=== PATIENT | female | born 1945 | race Caucasian/White ===

== ENCOUNTER → 2017-11-23 | Outpatient (CLI) | payer MEDICARE ==
[2017-11-23 19:21] LABS: Basophils # (A) 0.1 k/uL (0-0.2); Basophils % (A) 1 %; Eosinophils # (A) 0.2 k/uL (0-0.7); Eosinophils % (A) 2 %; HCT 47.5 % (34.0-46.0); HGB 14.8 gm/dL (11.4-16.0); Hypochromasia Slight; Lymphocytes # (A) 2.4 k/uL (1.0-4.8); Lymphocytes % (A) 29 %; MCH 31.5 pg (25.0-35.0); MCHC 31.2 g/dL (31.0-37.0); MCV 100.7 fL (80.0-100.0); Mean Platelet Volume 8.2; Monocytes # (A) 0.4 k/uL (0-1.0); Monocytes % (A) 5 %; Neutrophils # (A) 5.3 k/uL (1.3-7.7); Neutrophils % (A) 63 %; Platelet Count 217 k/uL (150-450); RBC 4.72 m/uL (3.80-5.40); RDW 12.7 % (11.5-15.5); WBC 8.5 k/uL (3.8-10.6)
[2017-11-23 19:22] LABS: ALT 23 U/L (9-52); AST 25 U/L (14-36); Albumin 4.5 g/dL (3.5-5.0); Alkaline Phosphatase 118 U/L (38-126); Anion Gap 10 mmol/L; Blood Urea Nitrogen 24 mg/dL (7-17); Calcium 9.8 mg/dL (8.4-10.2); Carbon Dioxide 27 mmol/L (22-30); Chloride 107 mmol/L (98-107); Cholesterol 165 mg/dL (<200); Glucose 87 mg/dL (74-99); HDL Cholesterol 56 mg/dL (40-60); LDL Cholesterol,Calculated 79 mg/dL (0-99); Potassium 5.1 mmol/L (3.5-5.1); Sodium 144 mmol/L (137-145); Total Bilirubin 0.3 mg/dL (0.2-1.3); Total Protein 7.5 g/dL (6.3-8.2); Triglycerides 148 mg/dL (<150)
[2017-11-24 00:26] LABS: Iron Saturation 38.01 (12.00-45.00)
== END | disposition home or self-care (01) ==
LOC: MMGSC 11:31
PROVIDERS: ATTEND Family Medicine
DX: Z00.00 Encounter for general adult medical examination without abnormal findings (principal); Z86.2 Personal history of diseases of the blood and blood-forming organs and certain disorders involving the immune mechanism
CPT/HCPCS: 36415; 80053; 80061; 82728; 83540; 83550; 84439; 84443; 85025

== ENCOUNTER → 2018-02-01 | Outpatient (CLI) | payer MEDICARE ==
[2018-02-01 18:41] LABS: Basophils % (A) 0 %; Eosinophils # (A) 0.2 k/uL (0-0.7); Eosinophils % (A) 3 %; HCT 45.6 % (34.0-46.0); Lymphocytes # (A) 2.3 k/uL (1.0-4.8); Lymphocytes % (A) 32 %; MCH 31.5 pg (25.0-35.0); MCHC 32.9 g/dL (31.0-37.0); MCV 95.7 fL (80.0-100.0); Mean Platelet Volume 8.3; Monocytes # (A) 0.3 k/uL (0-1.0); Monocytes % (A) 4 %; Neutrophils # (A) 4.3 k/uL (1.3-7.7); Neutrophils % (A) 59 %; Platelet Count 202 k/uL (150-450); RBC 4.77 m/uL (3.80-5.40); RDW 12.5 % (11.5-15.5); WBC 7.3 k/uL (3.8-10.6)
[2018-02-02 03:13] LABS: Iron Saturation 42.59 (12.00-45.00)
== END ==
LOC: MMGSC 10:36
PROVIDERS: ATTEND Family Medicine
DX: R53.83 Other fatigue (principal)
CPT/HCPCS: 36415; 82728; 83540; 83550; 85025

== ENCOUNTER 2018-12-09 09:40 | Emergency (ER) | payer MEDICARE ==
[2018-12-09] MEDS ORDERED: KETOROLAC 30 MG/ML 1 ML VIAL IM STA (10:06)
--- NOTE | 2018-12-09 10:11 | ED ---
General Adult HPI - General Chief complaint: Extremity Problem,Nontraumatic Stated complaint: Leg/knee Pain Time Seen by Provider: 12/09/18 09:54 Source: patient, RN notes reviewed Mode of arrival: ambulatory Limitations: no limitations - History of Present Illness Initial comments: 73-year-old female with a past medical history of hypertension, left knee surgery presents to the emergency department for a chief complaint of right knee pain x 6 days. Patient states this type of pain comes and goes over the past several years. However, pain usually gets better. She states this time of her pain does not seem to be resolving. She states most of the pain originates in the posterior aspect of the knee and radiates down to her calf. She states she does have pain in the anterior aspect of the knee if she moves the knee. Patient states she is now unable to bear weight on the right leg because of this knee pain. She denies any fevers or chills. She denies noticing any erythema or warmth in the right knee. Patient did have a left knee surgery done about 20 years ago but is unsure of why this was done. She did see her primary care provider for another reason 2 days ago and mentioned any pain but thought it would get better at that time so did not have a fully evaluated.Patient has no other complaints at this time including shortness of breath, chest pain, abdominal pain, nausea or vomiting, headache, or visual changes. - Related Data Home Medications Medication Instructions Recorded Confirmed Aspirin EC [Ecotrin Low Dose] 81 mg PO DAILY 12/09/18 12/09/18 Carisoprodol [Soma] 350 mg PO BID 12/09/18 12/09/18 HYDROcodone/APAP 5-325MG [Kimball 1 tab PO BID PRN 12/09/18 12/09/18 5-325] Naproxen Sodium [Aleve] 220 mg PO DAILY PRN 12/09/18 12/09/18 Nitroglycerin Sl Tabs [Nitrostat] 0.4 mg SUBLINGUAL Q5M PRN 12/09/18 12/09/18 Pramipexole [Mirapex] 0.125 mg PO HS 12/09/18 12/09/18 Simvastatin 40 mg PO HS 12/09/18 12/09/18 traZODone HCL [Desyrel] 100 mg PO HS PRN 12/09/18 12/09/18 Allergies Allergy/AdvReac Type Severity Reaction Status Date / Time celecoxib [From Celebrex] Allergy Swelling Verified 12/09/18 10:13 Review of Systems ROS Statement: Those systems with pertinent positive or pertinent negative responses have been documented in the HPI. ROS Other: All systems not noted in ROS Statement are negative. Past Medical History Past Medical History: Chest Pain / Angina, Hypertension History of Any Multi-Drug Resistant Organisms: None Reported Past Surgical History: Back Surgery, Cholecystectomy, Hysterectomy Additional Past Surgical History / Comment(s): Knee, carpal tunnel Past Psychological History: No Psychological Hx Reported Smoking Status: Current every day smoker Past Alcohol Use History: None Reported Past Drug Use History: None Reported General Exam Limitations: no limitations General appearance: alert, in no apparent distress Head exam: Present: atraumatic, normocephalic, normal inspection Eye exam: Present: normal appearance, PERRL, EOMI. Absent: scleral icterus, conjunctival injection, periorbital swelling ENT exam: Present: normal exam, mucous membranes moist Neck exam: Present: normal inspection, full ROM. Absent: tenderness, meningismus, lymphadenopathy Respiratory exam: Present: normal lung sounds bilaterally. Absent: respiratory distress, wheezes, rales, rhonchi, stridor Cardiovascular Exam: Present: regular rate, normal rhythm, normal heart sounds. Absent: systolic murmur, diastolic murmur, rubs, gallop, clicks Extremities exam: Present: tenderness (Mild tenderness noted to the anterior and posterior aspect of the right knee.), normal capillary refill (Capillary refill less than 2 seconds and DP pulse 2+ in the right lower extremity.), joint swelling (Patient does have edema noted of the right knee. There is no erythema or increased warmth noted over the right knee. No evidence of infection.). Absent: full ROM (Patient has about 90 flexion of the right knee. ), calf tenderness (No significant calf tenderness however there is mild edema noted of the right calf.) Course Vital Signs 12/09/18 12/09/18 09:42 11:18 Temperature 97.3 F L 98.9 F Pulse Rate 68 59 L Respiratory 20 18 Rate Blood Pressure 159/83 146/84 O2 Sat by Pulse 98 97 Oximetry Medical Decision Making - Medical Decision Making 73-year-old female with a past history of hypertension presents to the emergency department for right knee pain. Patient able to flex the knee to 90 . She does have edema noted to the right knee but no erythema or increased warmth. No fevers here or at home. Patient also has calf pain. Ultrasound negative for DVT. X-ray does show a small amount of fluid in the suprapatellar bursa without fracture or dislocation. There is also hypertrophic arthropathy. I do not suspect septic bursitis at this time this patient can bend and knee to 90, has no erythema or increased warmth noted to the knee. The knee was wrapped tightly with an Curry wrap, neurovascular status intact. Patient does have difficulty bearing weight on the right knee but states she wants to go home and does not want to stay here. She states she has a walker at home and her granddaughter is staying with her and will help her. She will follow up with orthopedics today. She will return here if she has any worsening symptoms. Patient does have Vicodin at home for her back pain that she will take. She states pain has improved on discharge. Disposition Clinical Impression: Bursitis, Knee pain, right Disposition: HOME SELF-CARE Condition: Good Instructions (If sedation given, give patient instructions): Knee Bursitis (ED) , Knee Pain (ED) Additional Instructions: Please take Motrin and your Vicodin at home for pain. Keep knee wrapped over the next several days. However do not keep knee wrapped when he were sleeping at night. Use your walker at home for support. Follow up with orthopedics today. Return here to the emergency department if you have any worsening symptoms. Is patient prescribed a controlled substance at d/c from ED?: No Referrals: Ayah Cooley MD [Primary Care Provider] - 1-2 days Time of Disposition: 12:23
--- NOTE | 2018-12-09 11:02 | XR ---
EXAMINATION TYPE: XR knee complete RT DATE OF EXAM: 12/09/2018 COMPARISON: NONE HISTORY: Pain TECHNIQUE: Four views are submitted. FINDINGS: Mild hypertrophic spurring. Mild narrowing patellofemoral joint and there is a small amount of fluid in the suprapatellar bursa. Osseous structures are intact. No acute fracture seen. IMPRESSION: 1. No acute fracture or dislocation. 2. Small amount of fluid in the suprapatellar bursa. 3. Hypertrophic arthropathy
[2018-12-09 11:18] VITALS: BP 146/84; PULSE 59; RESP 18
--- NOTE | 2018-12-09 11:27 | US ---
EXAMINATION TYPE: US venous doppler duplex LE RT DATE OF EXAM: 12/09/2018 11:20 AM COMPARISON: NONE CLINICAL HISTORY: Pain. RT leg pain SIDE PERFORMED: Right TECHNIQUE: The lower extremity deep venous system is examined utilizing real time linear array sonog navid with graded compression, doppler sonography and color-flow sonography. VESSELS IMAGED: External Iliac Vein (EIV) Common Femoral Vein Deep Femoral Vein Greater Saphenous Vein * Femoral Vein Popliteal Vein Small Saphenous Vein * Proximal Calf Veins (* superficial vessels) Right Leg: Negative for DVT IMPRESSION: 1. No diagnostic evidence of DVT as visualized.
[2018-12-09 12:12] VITALS: TEMP 98.9
[2018-12-09] MEDS ORDERED: MORPHINE SULFATE 4 MG/ML SYRINGE IM STA (12:24)
== END 2018-12-09 12:50 | disposition home or self-care (01) ==
LOC: EC 09:40
DX: M71.561 Other bursitis, not elsewhere classified, right knee (principal); M12.861 Other specific arthropathies, not elsewhere classified, right knee; R60.0 Localized edema; M79.661 Pain in right lower leg; I10 Essential (primary) hypertension; F17.200 Nicotine dependence, unspecified, uncomplicated; Z88.6 Allergy status to analgesic agent; Z79.82 Long term (current) use of aspirin; Z79.899 Other long term (current) drug therapy; Z98.890 Other specified postprocedural states
CPT/HCPCS: 73562; 93971; 99284; 96372 ×2; J2270; J1885

== ENCOUNTER → 2020-07-12 | Outpatient (CLI) | payer MEDICARE ==
[2020-07-12 23:04] LABS: % Iron Saturation 38.6 (12.00-45.00)
[2020-07-12 23:19] LABS: Ferritin 57.5 ng/mL (10.0-291.0)
== END | disposition home or self-care (01) ==
LOC: LABWHC1 14:45
PROVIDERS: ATTEND Internal Medicine Critical Care Medicine
DX: G25.81 Restless legs syndrome (principal)
CPT/HCPCS: 36415; 82728; 83540; 83550

== ENCOUNTER → 2021-01-09 | Outpatient (CLI) | payer MEDICARE | END | disposition home or self-care (01) | LOC: LABWHC1 16:41 | PROVIDERS: ATTEND Family Medicine | DX: U07.1 COVID-19 (principal); R50.9 Fever, unspecified; R43.8 Other disturbances of smell and taste | CPT/HCPCS: U0003; C9803; U0005 ==

== ENCOUNTER → 2022-11-12 | Outpatient (CLI) | payer MEDICARE ==
[2022-11-12 19:22] LABS: Basophils # (A) 0.03 X 10*3/uL (0.00-0.10); Basophils % (A) 0.5 %; Eosinophils % (A) 1.6 %; HCT 44.2 % (37.2-46.3); HGB 13.8 g/dL (12.0-15.0); Immature Grans, Automated 0.3 %; Lymphocytes # (A) 2.38 X 10*3/uL (0.90-5.00); Lymphocytes % (A) 38.3 %; MCH 30.8 pg (27.0-32.0); MCHC 31.2 g/dL (32.0-37.0); MCV 98.7 fL (80.0-97.0); Mean Platelet Volume 10.7 fL (9.5-12.2); Monocytes # (A) 0.42 X 10*3/uL (0.20-1.00); Monocytes % (A) 6.8 %; NRBC Per 100 WBC 0 /100 WBCS (0.0-0.0); Neutrophils # (A) 3.27 X 10*3/uL (1.80-7.70); Neutrophils % (A) 52.5 %; Platelet Count 159 X 10*3/uL (140-440); RBC 4.48 X 10*6/uL (4.10-5.20); RDW 12.4 % (11.5-14.5); WBC 6.22 X 10*3/uL (4.50-10.00)
[2022-11-12 19:50] LABS: African American GFR (CKD) 86.4 (60.0-200.0); BUN/Creat Ratio 25.58 Ratio (12.00-20.00); Blood Urea Nitrogen 19.8 mg/dL (9.0-27.0); Calcium 9.4 mg/dL (8.7-10.3); Carbon Dioxide 26.6 mmol/L (20.0-27.5); Non-African American GFR(CKD) 74.5 (60.0-200.0); Potassium 4.1 mmol/L (3.5-5.5)
== END | disposition home or self-care (01) ==
LOC: LABPAT 11:43
PROVIDERS: ATTEND Orthopaedic Surgery
DX: Z01.812 Encounter for preprocedural laboratory examination (principal); M16.12 Unilateral primary osteoarthritis, left hip
CPT/HCPCS: 80048; 85025

== ENCOUNTER → 2023-01-04 | Outpatient (CLI) | payer MEDICARE | END | disposition home or self-care (01) | LOC: LABPAT 15:10 | PROVIDERS: ATTEND Orthopaedic Surgery | DX: Z01.812 Encounter for preprocedural laboratory examination (principal); M16.12 Unilateral primary osteoarthritis, left hip; Z22.322 Carrier or suspected carrier of Methicillin resistant Staphylococcus aureus | CPT/HCPCS: 87070 ==

== ENCOUNTER 2023-01-11 10:12 | Day surgery (SDC) | payer MEDICARE ==
--- NOTE | 2023-01-10 13:25 | HP ---
HISTORY AND PHYSICAL DATE OF SURGERY: 01/11/2023 HISTORY OF PRESENT ILLNESS: Caty Jarquin is a 77-year-old patient seen with symptomatic left hip osteoarthritis. We discussed options for it regarding treatment. She elected to proceed with direct anterior left total hip arthroplasty. Consent regarding the procedure was obtained. Medical clearance was provided by Dr. Wills, cardiac clearance by Dr. Joshi. PAST MEDICAL HISTORY: Coronary artery disease, hypertension. PAST SURGICAL HISTORY: Total knee arthroplasty, lumbar spine surgery, cholecystectomy, appendectomy, angioplasty with stent. DAILY MEDICATIONS: 1. Amlodipine. 2. Atorvastatin. 3. Metoprolol. 4. Nitroglycerin. 5. Omeprazole. 6. Plavix. ALLERGIES: None. SOCIAL HISTORY: She denies tobacco use. PHYSICAL EXAMINATION OF LEFT HIP: She has very limited range of motion with severe pain. Positive hip impingement sign. Straight-leg raise negative. Her distal neurovascular exam is intact. RADIOGRAPHS: Left hip reveal severe osteoarthritic changes. IMPRESSION: 1. Left hip osteoarthritis. 2. Hypertension. 3. Hyperlipidemia. 4. Coronary artery disease. PLAN: Direct anterior left total hip arthroplasty. MMODL / IJN: [id number] /
[~2023-01-11 10:12] MED LIST: ACETAMINOPHEN TAB 500 MG TAB PO PRN; LIDOCAINE 1% (10MG/ML) FOR IV START INTRADERMA PRN; MELOXICAM 7.5 MG TAB PO PRN; ONDANSETRON 4 MG/2 ML VIAL IVP ONE; TRANEXAMIC ACID IN NACL,ISO-OS 1,000 MG in SALINE 1 100ML.BAG IVPB PRN; VANCOMYCIN 1,250 MG in SODIUM CHLORIDE 0.9% 250 ML IVPB PRN
[2023-01-11] MEDS: LACTATED RINGERS 1,000 ML IV SCH (10:44)
[2023-01-11] MEDS ORDERED: MIDAZOLAM 2 MG/2 ML VIAL IVP ONE (11:22)
[2023-01-11] MEDS ORDERED: DEXAMETHASONE SOD PHOSPHATE 4 MG/ML 1 ML VIAL IVP ONE (11:23)
[2023-01-11] MEDS ORDERED: ONDANSETRON 4 MG/2 ML VIAL IVP ONE (11:23)
[2023-01-11] MEDS ORDERED: GLYCOPYRROLATE 0.2 MG/ML 2 ML VIAL ONE (11:24)
[2023-01-11] MEDS ORDERED: SUCCINYLCHOLINE CHLORIDE 200 MG/10 ML VIAL IV ONE (11:24)
[2023-01-11] MEDS ORDERED: ROCURONIUM 10 MG/ML (5 ML VIAL) IV ONE (11:24)
[2023-01-11] MEDS ORDERED: PROPOFOL 10 MG/ML 20 ML VIAL IV ONE (11:24)
[2023-01-11] MEDS ORDERED: NEOSTIGMINE 1 MG/ML 10 ML VIAL ONE (11:24)
[2023-01-11] MEDS ORDERED: TRANEXAMIC ACID IN NACL,ISO-OS 1,000 MG/100 ML BAG ONE (11:24)
[2023-01-11] MEDS ORDERED: DEXAMETHASONE SOD PHOSPHATE 4 MG/ML 1 ML VIAL ONE (11:24)
[2023-01-11] MEDS ORDERED: fentaNYL (PF) 50 MCG/ML 2 ML AMP ONE (11:24)
[2023-01-11] MEDS ORDERED: MIDAZOLAM 2 MG/2 ML VIAL ONE (11:24)
[2023-01-11] MEDS ORDERED: SODIUM CHLORIDE 0.9% (PF) 10 ML VIAL ONE (11:24)
[2023-01-11] MEDS ORDERED: ceFAZolin 1,000 MG in SODIUM CHLORIDE 0.9% 1,000 ML IRRIGATION ONE (12:16)
--- NOTE | 2023-01-11 12:45 | P.ANPRN ---
Procedure Note - Anesthesia - Nerve Block Performed Left Jonh Single Time Out Performed: Yes (1121) Date of Procedure: 01/11/23 Procedure Start Time: 11:30 Procedure Stop Time: 11:35 Location of Patient: PreOp Indication: Acute Post-Operative Pain, Requested by Surgeon Sedation Type: Sedate with meaningful contact maintained Preparation: Sterile Prep, Sterile Dressing Position: Supine Catheter: None Needle Types: Pajunk Needle Gauge: 21 Ultrasound used to visualize needle placement: Yes Ultrasound used to observe medication spread: Yes Injectate: 0.5% Ropivacaine (see comment for volume) (21 mL of block solution containing 10 mL of 0.5% preservative free bupivacaine mixed with 10 ML of preservative-free normal saline, and 4 mg of dexamethasone) Blood Aspirated: No Pain Paresthesia on Injection Noted: No Resistance on Injection: Normal Image Stored and Saved: Yes Events: Uneventful and Well Tolerated
[2023-01-11] MEDS ORDERED: ONDANSETRON 4 MG/2 ML VIAL IVP PRN (13:17)
[2023-01-11] MEDS ORDERED: HYDROcodone/APAP 5-325MG 1 EACH TAB PO PRN (13:17)
[2023-01-11] MEDS ORDERED: HYDROmorphone 0.5 MG/0.5 ML SYRINGE IVP PRN ×3 (13:17)
[2023-01-11] MEDS ORDERED: NALOXONE 0.4 MG/ML 1 ML VIAL IV PRN (13:17)
--- NOTE | 2023-01-11 13:17 | P.OP ---
Date of Procedure: 01/11/23 Preoperative Diagnosis: Left hip osteoarthritis Postoperative Diagnosis: Left hip osteoarthritis Procedure(s) Performed: Direct anterior left total hip arthroplasty Implants: 1. Depuy Corail 135 standard collar KA size 12 press-fit femoral stem 2. Depuy pinnacle 54 mm press-fit acetabular shell 3. Depuy pinnacle neutral polyethylene acetabular liner 38 mm ID 54 mm OD 4. Biolox delta ceramic femoral head +1.5 36 mm Anesthesia: GETA, regional (Erector spinae block) Surgeon: Malcolm Virgen Manager Operations And Procurement #1: Rj Albert Estimated Blood Loss (ml): 55 Pathology: other (Femoral head) Condition: stable Disposition: PACU Indications for Procedure: 77-year-old patient seen with symptomatic left hip osteoarthritis. After having treatment options discussed, she elected to proceed with direct anterior left total hip arthroplasty. Operative Findings: See description of procedure Description of Procedure: The patient was taken to the operative suite. Patient underwent a general anesthetic by the department of anesthesia. Patient was then transferred to the [place] table. Patient was given preoperative IV antibiotics and TXA. Both lower extremities were placed in standard leg spars. The hip was then prepped and draped in the normal sterile orthopedic fashion. A standard anterior incision was made beginning 3 cm lateral and 1 cm distal to the ASIS extending 10 cm. Dissection was then carried down through the subcutaneous soft tissues down to the fascia overlying the tensor fascia andrew. An incision was now made through the fascia. Careful dissection was taken down exposing the tensor fascia andrew muscle. A Cobra retractor was now placed along the medial femoral neck and a second one along the lateral femoral neck. The venous circumflex vessels were now identified, cauterized and clipped. We identified the anterior hip capsule. An incision was made through the hip capsule along the lateral border. I performed a partial anterior capsulectomy. Retractors were now placed around the femoral neck itself. A femoral neck cut was now made with a sagittal saw. It was completed with an osteotome at the lateral neck area. The femoral head was now removed without difficulty. The extremity was now rotated to 60 of external rotation. It was locked in position. Residual labrum was now debrided out. Serial reaming was performed of the acetabulum while James LOVING assisted holding an anterior retractor for exposure. Once we reached the appropriate size and a trial was position and fit nicely. The appropriate size was now chosen opened and made available. It was introduced into the acetabulum without difficulty. The C-arm/fluoroscopy was now brought into the operative field. We made sure we had a true AP pelvic view. We now under direct C- arm/fluoroscopy introduced into the acetabular component with appropriate version and inclination. I held the cup in appropriate position well James LOVING used a mallet to seat the acetabular component. I noted the component now to be well seated and stable. Acetabular cup introduce her was removed. The C-arm was pulled back. An appropriate liner was introduced and clicked into position. It was felt to be stable. At this point retractors were removed. The extremity was now placed into 140 external rotation with no traction. The leg was now dropped to the ground and adducted. Appropriate retractors were now positioned along the proximal femur. We also placed our femoral look into position. Additional capsular releasing was performed to gain access to the proximal femur. We now used a box osteotome. A canal finder was now utilized. Serial broaching was now performed with the assistance of James LOVING tapping the broaches down with a mallet while held the broach in appropriate rotation and position. This was done until we reached the appropriate size with good overall rotational stability. Appropriate calcar planing was performed. A trial head/neck was placed into position. The hip was now reduced. The C- arm/fluoroscopy was brought back into the operative field. I obtained an AP pelvis which demonstrated adequate leg length alignment. The trial components appeared adequately size and positioned. The C-arm/fluoroscopy was pulled back. Retractors were repositioned and the hip was dislocated. The leg was again taken down to the ground and adducted. Appropriate retractors were repositioned as well as the femoral hook. All trial components were removed. The femoral implant was opened along with the femoral head. The femoral implant was introduced on the appropriate handle into our pre-broached area. I held the component position well James LOVING used a mallet to seat the femoral component. The femoral component was now noted to be well seated and stable.. The femoral head was introduced with good positioning and fixation noted. Retractors were now removed. The hip was now reduced. There appeared be good positioning of the hip confirmed on intraoperative fluoroscopy. Spot films were obtained to document this. A second gram of TXA was given. Bipolar cautery had been utilized intermittently through the procedure for hemostasis. The wound was irrigated copiously with pulse lavage mechanical irrigation. The fascia was repaired with Vicryl suture. The subcutaneous soft tissues were repaired in layers with Vicryl suture. The skin was approximated with pernio/Dermabond. Sterile dressings were applied. Patient was then awakened, transferred to a bed and taken to recovery in stable condition. James LOVING assisted with the complex procedure.
--- NOTE | 2023-01-11 13:17 | XR ---
EXAMINATION TYPE: XR Hip Limited LT DATE OF EXAM: 01/11/2023 COMPARISON: NONE HISTORY: Postop TECHNIQUE: One view submitted. FINDINGS: There is postsurgical change in near anatomic alignment. There is soft tissue edema and emphysema. IMPRESSION: 1. Postoperative change. Appears in near-anatomic alignment.
--- NOTE | 2023-01-11 13:39 | FL ---
EXAMINATION TYPE: FL guidance operating room DATE OF EXAM: 01/11/2023 HISTORY: Fluoroscopy time FL TIME 10 SEC DAP 0.45 of fluoroscopy provided. IMPRESSION: 1. Fluoroscopy time.
[2023-01-11] MEDS: HYDROmorphone 0.5 MG/0.5 ML SYRINGE IVP PRN ×3 (13:44→14:21)
[2023-01-11] MEDS: HYDROcodone/APAP 7.5-325MG 1 EACH TAB PO PRN ×2 (15:24→22:45)
[2023-01-11] MEDS ORDERED: NITROGLYCERIN SL TABS 0.4 MG TAB SUBLINGUAL PRN (16:53)
[2023-01-11] MEDS: SODIUM CHLORIDE 0.9% 1,000 ML IV SCH (17:33)
--- NOTE | 2023-01-11 18:12 | P.CONS ---
History of Present Illness - Reason for Consult Consult date: 01/11/23 Medical Management Requesting physician: Malcolm Virgen - History of Present Illness History of Presenting Illness: Patient is a very pleasant 77-year-old female with a past medical history of coronary artery disease status post stenting 2 on dual antiplatelet therapy with aspirin and Plavix, hypertension, hyperlipidemia, GERD, nicotine dependence, and osteoarthritis. Patient is currently admitted under orthopedic surgery team status post elective direct anterior left total hip arthroplasty. Surgical procedure was completed by Dr. Virgen secondary to patient's severe left hip osteoarthritis. We have been consulted for medical management throughout patient's hospitalization. Pt seen and fully evaluated upon arrival to room 459. Patient reports currently having controlled postoperative pain to left hip and left leg. She denies having any postoperative nausea or vomiting and is currently eating dinner at this time. Patient denies history of blood clots or PEs and denies having any previous postoperative complications. Patient currently denies having any headache, lightheadedness, dizziness, chest pain, palpitations, shortness of breath, abdominal pain, nausea, vomiting, or experiencing any focal numbness/tingling/weakness. Review of systems: Pertinent positives and negatives as discussed in HPI, a complete review of systems was performed and all other systems are negative. Physical exam: Vital signs reviewed and stable. General: Nontoxic, no distress and appears stated age. Derm: Skin warm and dry, normal coloration for ethnicity. Head: Atraumatic, normocephalic and symmetric. Eyes: EOMs intact, no lid lag, and anicteric sclera Mouth: no lip lesions, mucus membranes moist Cardiovascular: regular rate and rhythm with normal S1S2, no murmur, positive posterior tibial pulses bilaterally, and cap refill < 2 seconds. Lungs: Respirations even, regular, and unlabored on room air. Lungs CTA bilaterally, no rhonchi, no rales, no wheezing, and no accessory muscle usage. Abdominal: soft, nontender to palpation, no guarding, no appreciable organomegaly Ext: HORACIO hose in place and sensation and movement intact.. No gross muscle atrophy, no edema, no contractures. Postoperative dressing clean, dry, and intact left lateral hip and thigh with ice packs in place. Neuro: Speech clear, face symmetrical and CN II-XII grossly intact with no noted focal neuro deficits Psych: Alert and oriented to person, place, time, and situation. Appropriate and pleasant affect. Assessment and Plan of Care: Osteoarthritis Status post left total hip arthroplasty -DVT prophylaxis, pain management, wound/dressing care, weightbearing, and DVT prophylaxis per primary admitting orthopedic surgery team. -Order placed for morning BMP and CBC and we will follow up on results with additional orders based upon the findings. Coronary artery disease with history of stenting 2 Hypertension Hyperlipidemia -Home medications reviewed and reordered. Patient to continue amlodipine 5 mg nightly, atorvastatin 10 mg nightly, and metoprolol 100 mg twice daily. Currently postoperative blood pressure stable at 110/67 with heart rate of 68. -Discussed with orthopedic surgery PA, patient okayed to resume aspirin 81 mg daily and Plavix 75 mg daily. GERD -GI prophylaxis with Protonix 40 mg daily. Thank you for allowing us to participate in the care of this pleasant patient. Do not hesitate to contact us with questions. Someone can be reached from the [facility] hospitalist group all hours of the day at [phone] or via [employer]. Patient was seen independently by Nurse Practitioner. This document was prepared using [employer] dictation software. Please allow for errors in roof bolter operator while rare they do occur. Past Medical History Past Medical History: Chest Pain / Angina, Hypertension Additional Past Medical History / Comment(s): insomnia History of Any Multi-Drug Resistant Organisms: None Reported Past Surgical History: Back Surgery, Cholecystectomy, Hysterectomy Additional Past Surgical History / Comment(s): Knee, carpal tunnel Past Anesthesia/Blood Transfusion Reactions: No Reported Reaction Additional Past Anesthesia/Blood Transfusion Reaction / Comm: woke up before during surg. Date of Last Stent Placement:: 2020 Past Psychological History: No Psychological Hx Reported Smoking Status: Current every day smoker Past Alcohol Use History: None Reported Past Drug Use History: None Reported - Past Family History Mother Family Medical History: No Reported History Medications and Allergies Home Medications Medication Instructions Recorded Confirmed Type Aspirin EC [Ecotrin Low Dose] 81 mg PO DAILY 12/09/18 01/11/23 History Nitroglycerin Sl Tabs [Nitrostat] 0.4 mg SUBLINGUAL Q5M PRN 12/09/18 01/11/23 History Pramipexole [Mirapex] 1.5 mg PO HS 12/09/18 01/11/23 History traZODone HCL [Desyrel] 100 mg PO HS 12/09/18 01/11/23 History Atorvastatin [Lipitor] 10 mg PO HS 01/01/23 01/11/23 History Clopidogrel [Plavix] 75 mg PO DAILY 01/01/23 01/11/23 History HYDROcodone/APAP 7.5-325MG [Judsonia 1 tab PO TID 01/01/23 01/11/23 History 7.5-325] Melatonin [Melatonin ER] 10 mg PO HS 01/01/23 01/11/23 History Metoprolol Tartrate [Lopressor] 100 mg PO BID 01/01/23 01/11/23 History Omeprazole [PriLOSEC] 20 mg PO AC-BRKFST 01/01/23 01/11/23 History amLODIPine [Norvasc] 5 mg PO HS 01/01/23 01/11/23 History Allergies Allergy/AdvReac Type Severity Reaction Status Date / Time celecoxib [From Celebrex] Allergy Swelling Verified 01/11/23 10:27 Physical Exam Vitals: Vital Signs Temp Pulse Pulse Resp BP BP Pulse Ox 01/11/23 15:00 97.4 F L 54 L 16 132/62 98 01/11/23 14:38 66 16 126/76 96 01/11/23 14:23 55 L 16 135/61 96 01/11/23 14:08 60 18 142/63 100 01/11/23 13:53 55 L 16 143/59 97 01/11/23 13:38 96.9 F L 63 18 147/102 97 01/11/23 11:26 68 18 111/65 97 01/11/23 11:01 97.1 F L 60 18 143/75 97 Intake and Output 01/11/23 01/11/23 01/11/23 06:59 14:59 22:59 Intake Total 1226 Output Total 55 Balance 1171 Intake: IV 1226 Output: Estimated Blood Loss 55 Other: Weight 78.6 kg 78.6 kg
[2023-01-11 20:01] VITALS: RESP 18
[2023-01-11] MEDS: METOPROLOL TARTRATE 50 MG TAB PO SCH (20:41)
[2023-01-11] MEDS ORDERED: PRAMIPEXOLE 0.5 MG TAB PO SCH (21:00)
[2023-01-11] MEDS ORDERED: amLODIPine 5 MG TAB PO SCH (21:00)
[2023-01-11] MEDS ORDERED: MELATONIN 5 MG TABLET PO SCH (21:00)
[2023-01-11] MEDS ORDERED: traZODone HCL 100 MG TAB PO SCH (21:00)
[2023-01-11] MEDS ORDERED: ATORVASTATIN 10 MG TAB PO SCH (21:00)
[2023-01-12] MEDS: LACTATED RINGERS 1,000 ML IV SCH (05:58)
[2023-01-12] MEDS ORDERED: PANTOPRAZOLE 40 MG TABLET PO SCH (07:30)
[2023-01-12] MEDS: METOPROLOL TARTRATE 50 MG TAB PO SCH (07:43)
[2023-01-12] MEDS: HYDROcodone/APAP 7.5-325MG 1 EACH TAB PO PRN (07:44)
[2023-01-12 07:45] VITALS: BP 92/54; PULSE 64; TEMP 98.4
[2023-01-12] MEDS ORDERED: CLOPIDOGREL 75 MG TAB PO SCH (09:00)
[2023-01-12] MEDS ORDERED: FAMOTIDINE 20 MG TAB PO SCH (09:00)
[2023-01-12] MEDS ORDERED: ENOXAPARIN 40 MG/0.4 ML SYRINGE SQ SCH (09:00)
[2023-01-12] MEDS ORDERED: ASPIRIN 81 MG PO SCH (09:00)
[2023-01-12 09:27] LABS: Basophils # (A) 0.02 X 10*3/uL (0.00-0.10); Basophils % (A) 0.2 %; Eosinophils # (A) 0 X 10*3/uL (0.04-0.35); Eosinophils % (A) 0 %; HCT 36.1 % (37.2-46.3); HGB 11.6 g/dL (12.0-15.0); Immature Grans, Automated 0.5 %; Lymphocytes # (A) 1.69 X 10*3/uL (0.90-5.00); Lymphocytes % (A) 13.1 %; MCH 31.4 pg (27.0-32.0); MCHC 32.1 g/dL (32.0-37.0); MCV 97.6 fL (80.0-97.0); Mean Platelet Volume 10.4 fL (9.5-12.2); Monocytes % (A) 5.4 %; NRBC Per 100 WBC 0 /100 WBCS (0.0-0.0); Neutrophils # (A) 10.39 X 10*3/uL (1.80-7.70); Neutrophils % (A) 80.8 %; Platelet Count 174 X 10*3/uL (140-440); RDW 12.8 % (11.5-14.5); WBC 12.87 X 10*3/uL (4.50-10.00)
[2023-01-12 09:45] LABS: African American GFR (CKD) 96.9 (60.0-200.0); Anion Gap 7.7 mmol/L (10.00-18.00); BUN/Creat Ratio 27.86 Ratio (12.00-20.00); Blood Urea Nitrogen 19.5 mg/dL (9.0-27.0); Calcium 8.6 mg/dL (8.7-10.3); Carbon Dioxide 27.3 mmol/L (20.0-27.5); Magnesium 1.9 mg/dL (1.5-2.4); Non-African American GFR(CKD) 83.6 (60.0-200.0)
--- NOTE | 2023-01-12 10:16 | P.PN ---
Subjective Progress Note Date: 01/12/23 Principal diagnosis: Status post direct anterior left total hip arthroplasty Patient evaluated at bedside, she is resting comfortably in her hospital chair. She did well with physical therapy this morning. Her pain is currently controlled. She is urinating with no difficulty. She denies any headaches, lightheadedness, chest pain or shortness of breath. Objective - Vital Signs Vital signs: Vital Signs Temp 98.4 F 01/12/23 06:54 Pulse 64 01/12/23 06:54 Resp 18 01/12/23 06:54 BP 92/54 01/12/23 06:54 Pulse Ox 92 L 01/12/23 06:54 FiO2 Intake & Output 01/11/23 01/12/23 01/12/23 18:59 06:59 18:59 Intake Total 1466 Output Total 55 Balance 1411 Weight 78.6 kg Intake: IV 1226 Oral 240 Output: Estimated Blood Loss 55 Other: Voiding Method Bedside Commode # Voids 0 3 - Exam Left lower extremity: Incision is clean, dry, and intact. The postoperative dressing is in good cond ition. There is minimal soft tissue swelling and ecchymosis surrounding the medial and lateral aspects of the incision. Calf is soft, no tenderness with palpation. Plantar flexion, dorsiflexion, EHL, FHL are intact. Sensory exam to light touch throughout the extremity is intact, dorsal pedis pulses 2+. - Labs CBC & Chem 7: 01/12/23 03:56 01/12/23 03:56 Labs: Abnormal Lab Results - Last 24 Hours (Table) 01/12/23 01/12/23 Range/Units 03:56 03:56 WBC 12.87 H (4.50-10.00) X 10*3/uL RBC 3.70 L (4.10-5.20) X 10*6/uL Hgb 11.6 L (12.0-15.0) g/dL Hct 36.1 L (37.2-46.3) % MCV 97.6 H (80.0-97.0) fL Immature Gran # 0.07 H (0.00-0.04) X 10*3/uL Neutrophils # 10.39 H (1.80-7.70) X 10*3/uL Eosinophils # 0 L (0.04-0.35) X 10*3/uL Anion Gap 7.70 L (10.00-18.00) mmol/L BUN/Creatinine Ratio 27.86 H (12.00-20.00) Ratio Calcium 8.6 L (8.7-10.3) mg/dL Assessment and Plan Assessment: Postoperative day #1 status post right anterior left total hip arthroplasty Plan: Pain control, patient will resume [place] 7.5 mg/325 mg DVT prophylaxis, Plavix and aspirin have been resumed Wound care instructions discussed, a new bandage will be placed prior to discharge by nursing staff Home healthcare after discharge Encourage incentive spirometer Medical recommendations Discharge planning: Orthopedically patient stable for discharge home Time with Patient: Less than 30
--- NOTE | 2023-01-12 10:23 | P.DS ---
Providers Date of admission: 01/11/2023 Expected date of discharge: 01/12/23 Attending physician: Malcolm Virgen Consults: 01/11/23 13:17 Consult Physician Routine Consulting Provider: Miladis Sandoval Consult Reason/Comments: Medical management Do you want consulting provider notified?: Yes Primary care physician: Ayah [facility] Course: Date of admission: 01/11/2023 Date of discharge: 01/12/2023 Admission diagnosis: Status post direct anterior left total hip arthroplasty Discharge diagnosis: Same Attending physician: Dr. Virgen Surgical procedures: Direct anterior left total hip arthroplasty Brief history: Patient is a 77-year-old female with a history of progressive primary left hip osteoarthritis. At this point patient has failed conservative treatment measures and has opted to proceed with a elective right anterior left total hip arthroplasty. Hospital course: Details of patient's surgery can be found in operative report. Patient tolerated the procedure well and was subsequently transported to orthopedic floor. Patient's orthopeidc and medical care was provided daily. Patient had daily laboratory tests performed for evaluation of overall blood counts. Patient had daily physical therapy to include strengthening range of motion as well as education with walker ambulation. Patient was treated with Lovenox for their postoperative DVT prophylaxis during their inpatient stay. Patient was noted to have a relatively uneventful postoperative course. Patient reported satisfactory pain control with oral pain medications by postoperative day 0. Patient showed satisfactory progress with physical therapy. Patient moved steadily through the program and had no difficulty meeting the goals by postoperative day 0. Given patient's otherwise satisfactory course and having met physical therapy goals, plan is to discharge patient home on postoperative day 1. Discharge condition/disposition: Patient will be discharged home in stable condition. Discharge medications: Instructions are given on resumption of patient's normal daily medications per primary care recommendation, in addition patient will be prescribed no new medications. Discharge instructions: 1. Wound care and infection precautions, keep incision dry and covered while showering, no lotions, creams, moisturizers. No soaking, tubs, pools, hottubs. Do not scrub over the incision. 2. Weight-bear as tolerated with walker / cane until follow-up. 3. Ice and elevate when necessary. Do not exceed 20 minutes per hour with ice pack. 4. Utilize compression sleeve until seen at first follow up appointment. 5. Visiting nursing care. 6. Home physical therapy. 7. Pain meds and anticoagulants per prescription. 8. Pain medication has potential to cause constipation. Increase oral fluid and fiber intake. Contact primary care provider if you have not had a bowel movement within 48 hours after discharge 9. No anti-inflammatory medication until discussed at first post operative visit, this including Motrin, Aleve, Mobic, Diclofenac. 10. Follow up in office at 2 weeks postop with James Albert PA-C/Titus Tang 11. Follow up with your primary care doctor 7-10 days after discharge. 12. Contact [facility] with any questions, . Procedures: Direct anterior total hip arthroplasty Patient Condition at Discharge: Good Plan - Discharge Summary Discharge Rx Participant: Yes New Discharge Prescriptions: No Action traZODone HCL [Desyrel] 100 mg PO HS Pramipexole [Mirapex] 1.5 mg PO HS Nitroglycerin Sl Tabs [Nitrostat] 0.4 mg SUBLINGUAL Q5M PRN PRN Reason: Chest Pain Aspirin EC [Ecotrin Low Dose] 81 mg PO DAILY Clopidogrel [Plavix] 75 mg PO DAILY HYDROcodone/APAP 7.5-325MG [[place] 7.5-325] 1 tab PO TID Omeprazole [PriLOSEC] 20 mg PO AC-BRKFST Metoprolol Tartrate [Lopressor] 100 mg PO BID Atorvastatin [Lipitor] 10 mg PO HS amLODIPine [Norvasc] 5 mg PO HS Melatonin [Melatonin ER] 10 mg PO HS Discharge Medication List Aspirin EC [Ecotrin Low Dose] 81 mg PO DAILY 12/09/18 [History] Nitroglycerin Sl Tabs [Nitrostat] 0.4 mg SUBLINGUAL Q5M PRN 12/09/18 [History] Pramipexole [Mirapex] 1.5 mg PO HS 12/09/18 [History] traZODone HCL [Desyrel] 100 mg PO HS 12/09/18 [History] Atorvastatin [Lipitor] 10 mg PO HS 01/01/23 [History] Clopidogrel [Plavix] 75 mg PO DAILY 01/01/23 [History] HYDROcodone/APAP 7.5-325MG [[place] 7.5-325] 1 tab PO TID 01/01/23 [History] Melatonin [Melatonin ER] 10 mg PO HS 01/01/23 [History] Metoprolol Tartrate [Lopressor] 100 mg PO BID 01/01/23 [History] Omeprazole [PriLOSEC] 20 mg PO AC-BRKFST 01/01/23 [History] amLODIPine [Norvasc] 5 mg PO HS 01/01/23 [History] Follow up Appointment(s)/Referral(s): Rj Albert PAC [PHYSICIAN CHILD PSYCHOLOGY TEACHER] - 2 Weeks Activity/Diet/Wound Care/Special Instructions: Orthopedic Discharge Instructions: 1. Wound care and infection precautions, keep incision dry and covered while showering, no lotions, creams, moisturizers. No soaking, pools, hot tubs. Do not scrub over incision. 2. Weight-bear as tolerated with walker / cane until follow-up. 3. Ice and elevate when necessary. Do not exceed 20 minutes per hour with ice pack. 4. Utilize compression sleeve until seen at first follow up appointment. 5. Pain meds and anticoagulants per prescription. 6. Pain medication has potential to cause constipation. Increase oral fluid and fiber intake. Contact primary care provider if you have not had a bowel movement within 48 hours after discharge. 7. No anti-inflammatory medication until discussed at first post operative visit, this including Motrin, Aleve, Mobic, Diclofenac. 8. Follow up in office at 2 weeks postop with James Albert PA-C/Titus Borja PA-C 9. Follow up with your primary care doctor 7-10 days after discharge. 10. Contact [facility] with any questions, . Wound care instructions: 1. Okay to remove foam dressing as of 01/18/2023 2. Okay to shower directly over incision after removal of bandage Discharge Disposition: HOME WITH HOME HEALTH SERVICES
[2023-01-12] MEDS: SODIUM CHLORIDE 0.9% 1,000 ML IV SCH (10:34)
[2023-01-12] MEDS ORDERED: MULTIVITAMINS, THERA 1 EACH TAB PO SCH (12:00)
--- NOTE | 2023-01-12 18:07 | P.PN ---
Subjective Progress Note Date: 01/12/23 History of Presenting Illness: Patient is a very pleasant 77-year-old female with a past medical history of coronary artery disease status post stenting 2 on dual antiplatelet therapy with aspirin and Plavix, hypertension, hyperlipidemia, GERD, nicotine dependen ce, and osteoarthritis. Patient is currently admitted under orthopedic surgery team status post elective direct anterior left total hip arthroplasty. Surgical procedure was completed by Dr. Virgen secondary to patient's severe left hip osteoarthritis. We have been consulted for medical management throughout patient's hospitalization. Physical exam: Patient was seen and evaluated at bedside this morning. Patient sitting up in chair and reports mild postoperative pain to left lateral hip. She continues to deny any other complaints including headache, lightheadedness, dizziness, chest pain, palpitations, or shortness of breath. Vital signs reviewed and stable. General: Nontoxic, no distress and appears stated age. Derm: Skin warm and dry, normal coloration for ethnicity. Head: Atraumatic, normocephalic and symmetric. Eyes: EOMs intact, no lid lag, and anicteric sclera Mouth: no lip lesions, mucus membranes moist Cardiovascular: regular rate and rhythm with normal S1S2, no murmur, positive posterior tibial pulses bilaterally, and cap refill < 2 seconds. Lungs: Respirations even, regular, and unlabored on room air. Lungs CTA bilaterally, no rhonchi, no rales, no wheezing, and no accessory muscle usage. Abdominal: soft, nontender to palpation, no guarding, no appreciable organomegaly Ext: HORACIO hose in place and sensation and movement intact.. No gross muscle atrophy, no edema, no contractures. Postoperative dressing clean, dry, and intact left lateral hip. Neuro: Speech clear, face symmetrical and CN II-XII grossly intact with no noted focal neuro deficits Psych: Alert and oriented to person, place, time, and situation. Appropriate and pleasant affect. Assessment and Plan of Care: Osteoarthritis Status post left total hip arthroplasty -DVT prophylaxis, pain management, wound/dressing care, weightbearing, and DVT prophylaxis per primary admitting orthopedic surgery team. -Morning labs reviewed. CBC revealing mild leukocytosis with WBC count of 12.87, and macrocytic anemia with hemoglobin of 11.6 and MCV of 97.6. BMP unremarkable. Magnesium normal findings at 1.9. Coronary artery disease with history of stenting 2 Hypertension Hyperlipidemia -Patient to continue aspirin 81 mg daily, Plavix 75 mg daily, amlodipine 5 mg nightly, atorvastatin 10 mg nightly, and metoprolol 100 mg twice daily. Cur rently postoperative blood pressures running soft with last 2 blood pressures of 94/54 and 92/54 with heart rate of 64. Patient is on metoprolol 100 mg twice daily. Discussed with patient and RN and recommending holding metoprolol for systolic pressure less than 100 and rechecking pressure after 1-2 hours. GERD -GI prophylaxis with Protonix 40 mg daily. Thank you for allowing us to participate in the care of this pleasant patient. Do not hesitate to contact us with questions. Someone can be reached from the [facility] [place] hospitalist group all hours of the day at [phone] or via [employer]. Patient was seen independently by Nurse Practitioner. This document was prepared using [employer] dictation software. Please allow for errors in manager employee relations while rare they do occur. Objective - Vital Signs Vital signs: Vital Signs Temp 98.4 F 01/12/23 06:54 Pulse 64 01/12/23 06:54 Resp 18 01/12/23 06:54 BP 92/54 01/12/23 06:54 Pulse Ox 92 L 01/12/23 06:54 FiO2 Intake & Output 01/11/23 01/12/23 01/12/23 18:59 06:59 18:59 Intake Total 1466 Output Total 55 Balance 1411 Weight 78.6 kg Intake: IV 1226 Oral 240 Output: Estimated Blood Loss 55 Other: Voiding Method Bedside Commode # Voids 0 3 - Labs CBC & Chem 7: 01/12/23 03:56 01/12/23 03:56
== END 2023-01-12 12:24 | disposition home health service (06) ==
LOC: OR 10:12 → 4SSUR 13:32 → OR 01-12 12:24
PROVIDERS: ATTEND Orthopaedic Surgery
DX: M16.12 Unilateral primary osteoarthritis, left hip (principal); G89.18 Other acute postprocedural pain; I10 Essential (primary) hypertension; I25.10 Atherosclerotic heart disease of native coronary artery without angina pectoris; G47.00 Insomnia, unspecified; F17.200 Nicotine dependence, unspecified, uncomplicated; Z90.49 Acquired absence of other specified parts of digestive tract; Z98.890 Other specified postprocedural states; Z95.5 Presence of coronary angioplasty implant and graft; Z79.899 Other long term (current) drug therapy; Z79.02 Long term (current) use of antithrombotics/antiplatelets; Z90.710 Acquired absence of both cervix and uterus; Z88.8 Allergy status to other drugs, medicaments and biological substances
CPT/HCPCS: 97161; 64447; 76942; 86900; 86901; 80048; 83735; 85025; 86850; 73501; 27130; C1776; J2250; J3370; J1100; J0690 ×3; J2405; J1170 ×2; 88300

== ENCOUNTER 2024-02-16 19:29 | Outpatient (CLI) | payer MEDICARE ==
--- NOTE | 2024-02-24 22:23 | P.PCN ---
Date of Procedure: 02/16/24 Operative Findings: Polysomnography report Date of services 02/16/2024 Pertinent history This is a 78-year-old female patient with chronic hypersomnia. Home sleep study that was done earlier showed mild obstructive sleep apnea with an AHI of 7. The severity of her illness was not enough to explain her chronic hypersomnia sleepiness. Based on that, a screening polysomnography was requested. The patient has an [place] score of 17. She also has a history of excessive restless legs causing significant sleep fragmentation and she is maintained on a combination of Mcdonald, and Mirapex at a dose of 1.5 mg p.o. daily. Pertinent physical findings The patient's height is 5 feet and 3 inches, weight is 180 pounds and a body mass index is 31.9 Technical description The patient was studied using a standard complex polysomnography protocol that included recording of the 2 EKG, Central, occipital and frontal EEG, right and left outer canthus EOG, submental EMG, right and left anterior tibialis EMG, respiratory airflow by thermocouple and or pressure/flow transducer, respiratory efforts by abdominal and thoracic PVDF belts, oxygen saturation by cable oximetry. Position by observation synchronized the PSG. Equipment used: [employer]. Sleep characteristics The total recording duration was 4 4 7 minutes. The total sleep time was 364.5 minutes. The sleep efficiency was calculated to be at 81.5%. The latency to sleep onset was 6.5 minutes. The latency to REM sleep was 41.5 minutes. The sleep architecture was characterized by 17.4% stage I, 64.5% stage II, 5.8% stage III, 12.3% REM sleep. The wake after sleep onset time was 75.5 minutes. The total arousal index was 37 Respiratory analysis This sleep study showed a total of 118 obstructive events of which 59 were obstructive apneas, 0 were mixed apneas and 59 were obstructive hypopneas. The resulting AHI was 18.1. There was also 1 central apnea with a central apnea index of 0.2. The patient's disease severity was worse during REM sleep. AHI during REM was 45.3 Oxygenation analysis Baseline pulse ox was 90% while awake. Lowest oxygen saturation was 61% and the patient spent approximately 3 hours and 28 minutes of the sleep time below pulse ox of 89%. The minimum pulse ox was reported during REM sleep and this was 61% Sleep continuity summary The patient had a total of 225 arousals with an index of 37.0. Respiratory arousal index was 6.9 Periodic limb movement summary The sleep study showed a total of 107 periodic limb movement activity with an index of 17.6. There were also 27 periodic movement with arousals with an index of 4.4 Cardiac summary The average heart rate was 57 with a minimum heart rate of 63 and a maximum heart rate of 63 Assessment Obstructive sleep apnea, moderate in severity with an AHI of 18.1. The patient's disease was worse during REM sleep. AHI during REM was 45 Nocturnal oxygen desaturation. The patient at baseline hypoxemia while awake with a pulse ox of 90% and the patient spent approximately 3 hours and 28 minutes of sleep time below pulse ox of 89% with a minimum pulse ox of 61% Restless leg syndrome maintained on Mirapex. The patient had a periodic limb movement index of 17.6, nevertheless this was not causing significant arousals Abnormal sleep maintenance with an arousal index of 37 and a respiratory arousal index of 6.9. Periodic limb movement arousal index was 4.4 Chronic hypersomnia, [place] score of 17 Hypertension Hyperlipidemia Lower extremity edema Plan The patient's forced ability to maintain sleep does not fully explain on the basis of restless leg/periodic limb movement and sleep apnea. In fact, her arousal index is is higher than what is expected to be seen on the basis of sleep apnea and periodic limb movements. Nevertheless, based on her ongoing increased sleepiness, I think it is worthwhile to give the patient a trial of CPAP and assess her clinical response specially the patient is encountering significant nocturnal oxygen saturations. I am going to asked the patient to come into the sleep center to undergo a CPAP titration. Following that, the patient was seen back in the office to assess her response to CPAP therapy and evaluated compliancy. Continue Mirapex. Continue Mcdonald. Continue rest of the medications. Will continue to follow.
== END 2024-02-17 05:35 | disposition home or self-care (01) ==
LOC: 3 N SLEEP 19:29
PROVIDERS: ATTEND Internal Medicine Critical Care Medicine
DX: G47.33 Obstructive sleep apnea (adult) (pediatric) (principal); G47.10 Hypersomnia, unspecified; I10 Essential (primary) hypertension; G25.81 Restless legs syndrome; E78.5 Hyperlipidemia, unspecified; R60.0 Localized edema; G47.61 Periodic limb movement disorder; G47.36 Sleep related hypoventilation in conditions classified elsewhere; F17.200 Nicotine dependence, unspecified, uncomplicated; G47.52 REM sleep behavior disorder; Z88.8 Allergy status to other drugs, medicaments and biological substances; Z79.899 Other long term (current) drug therapy; Z79.02 Long term (current) use of antithrombotics/antiplatelets
CPT/HCPCS: 95810

== ENCOUNTER → 2024-03-03 | Outpatient (CLI) | payer MEDICARE ==
--- NOTE | 2024-03-03 12:06 | XR ---
EXAMINATION TYPE: XR foot complete RT DATE OF EXAM: 03/03/2024 11:52 AM CLINICAL INDICATION:Female, 78 years old with history of M79.671 RIGHT FOOT PAIN; [facility] COMPARISON: None TECHNIQUE: XR foot complete RT examined in the AP, oblique, and lateral projections. FINDINGS: No evidence of any acute osseous pathology. No evidence of soft tissue swelling. Joints are preserve d. Calcaneal plantar spurring is present. Multifocal degeneration changes throughout the joints of th e foot with osteophyte formation and joint space narrowing. Calcaneal Achilles enthesophyte. IMPRESSION: No evidence of acute fracture.
== END | disposition home or self-care (01) ==
LOC: RADXRMAIN 11:23
PROVIDERS: ATTEND Family Medicine
DX: M79.671 Pain in right foot (principal)

== ENCOUNTER 2024-04-26 19:43 | Outpatient (CLI) | payer MEDICARE ==
--- NOTE | 2024-05-02 23:32 | P.PCN ---
Date of Procedure: 04/26/24 Operative Findings: CPAP titration report Date of service is 04/26/2024 History This is a 78-year-old female patient with chronic hypersomnia. Polysomnography showed moderate severe RAND with an AHI of 18, worse during REM sleep in the patient encounter significant nocturnal oxygen desaturation.The patient has an [place] score of 17. She also has a history of excessive restless legs causing significant sleep fragmentation and she is maintained on a combination of [place], and Mirapex at a dose of 1.5 mg p.o. daily. Pertinent physical findings Height is 5 feet 3 inches, weight is 180 pounds and a body mass index is 31.4 Technical description The patient was studied using a standard complex polysomnography protocol that included recording of the 2 EKG, Central, occipital and frontal EEG, right and left outer canthus EOG, submental EMG, right and left anterior tibialis EMG, respiratory airflow by thermocouple and or pressure/flow transducer, respiratory efforts by abdominal and thoracic PVDF belts, oxygen saturation by cable oximetry. Position by observation synchronized the PSG. Stepwise CPAP titration was done to eliminate all obstructive respiratory events. Sleep characteristics equipment used: Sviral. Sleep characteristics The total recording duration was for 11.5 minutes. The total sleep time was 313.0 minutes. The overall sleep efficiency was calculated to be at 76.1%. The latency to sleep onset was 30 minutes. The latest REM sleep was 81.5 minutes. The sleep architecture was characterized by 34.3% stage I, 54.2% stage II, 0.2% stage III, and 13.1% REM sleep. The total arousal index was 27.8. The wake after sleep onset time was 98 minutes Respiratory summary CPAP titration was initiated initially at a pressure of 5 cm of water and pressure was gradually increased by increments of 1 cm of water to reach a maximum pressure of 14 cm of water. Oxygen was also added at 2 L at a pressure of 13 cm of water to eliminate oxygen desaturations. This was a successful titration. All sleep stages were encountered. Patient has completed elimination of obstructive respiratory events have been very sleep stages and various body positions. Sleep continuity summary Sleep continuity summary The patient has a total of 145 arousals with an index of 27.2. Respiratory arousal index was 2.1 Periodic limb movement activity The patient had a total of a total of 61 periodic limb movement activity with an index of 11.7. There was a total of 36 periodic limb movement activity with arousals with an index of 6.9 Cardiac summary Average heart rate was 58 with a minimum heart rate of 51 and a maximum heart of 62 Assessment Obstructive sleep apnea, moderate in severity with an AHI of 18.1. The patient's disease was worse during REM sleep. AHI during REM was 45, the patient underwent a successful CPAP titration. Nocturnal oxygen desaturation, severe, improved with oxygen and CPAP therapy Restless leg syndrome maintained on Mirapex. The patient had a periodic limb movement index of 17.6, nevertheless this was not causing significant arousal Abnormal sleep architecture with a representation of stage I sleep. Chronic hypersomnia, [place] score of 17 Hypertension Hyperlipidemia Lower extremity edema Plan Initiate CPAP therapy. The patient is going to be offered an APAP machine and this will be set at pressures of 5/14 cm of water. Actual dose added 2 L along with CPAP therapy to limit nocturnal oxygen saturations. Noted the patient was encountering severe oxygen desaturations along with CPAP therapy. Oxygen therapy at 2 L eliminated with significant nocturnal oxygen desaturations. The patient will be offered a medium size AirFit F20 fullface mask, the patient will see him back in the office in 30 to 90 days to assess clinical response and compliancy. Will continue to follow.
== END 2024-04-27 05:30 | disposition home or self-care (01) ==
LOC: 3 N SLEEP 19:43
PROVIDERS: ATTEND Internal Medicine Critical Care Medicine
DX: G47.33 Obstructive sleep apnea (adult) (pediatric) (principal); G47.36 Sleep related hypoventilation in conditions classified elsewhere; G25.81 Restless legs syndrome; I10 Essential (primary) hypertension; E78.5 Hyperlipidemia, unspecified; R60.0 Localized edema; G47.61 Periodic limb movement disorder; F17.200 Nicotine dependence, unspecified, uncomplicated; Z88.8 Allergy status to other drugs, medicaments and biological substances; Z79.899 Other long term (current) drug therapy; Z79.02 Long term (current) use of antithrombotics/antiplatelets
CPT/HCPCS: 95811